=== PATIENT | female | born 1995 | race Two or more races ===

== ENCOUNTER 2022-04-15 02:12 | Emergency (ER) | payer SELFPAY ==
[2022-04-15] VITALS (24 sets, daily range): BP systolic 110–172; BP diastolic 59–110; PULSE 69–74; RESP 16–18; TEMP 36.4; O2SAT 95–100
[2022-04-15] MEDS: METOCLOPRAMIDE HCL INJ 10 MG/2 ML VIAL IM (03:10)
[2022-04-15] MEDS: LACTATED RINGERS 1,000 ML 999 ML IV CONT (04:20)
[2022-04-15] MEDS: ONDANSETRON INJ 4 MG/2 ML VIAL IV PUSH (04:20)
[2022-04-15 04:38] LABS: Basophils Absolute Auto 0.1 K/mm3 (0.0-0.1); Basophils Percent Auto 0.3 % (0.2-1.2); Eosinophils Percent Auto 0.1 % (0-4.4); Hematocrit 43.1 % (37.0-47.0); Immature Granulocyte Absolute 0.04 K/mm3 (0.00-0.031); Immature Granulocyte Percent A 0.2 % (0-0.5); Lymphocytes Absolute Auto 0.97 K/mm3 (0.9-3.2); Mean Corpuscular HGB Conc 32.5 g/dl (32-36); Mean Corpuscular Hemoglobin 29.7 pg (26-34); Mean Corpuscular Volume 91.5 fl (80-100); Mean Platelet Volume 9.1 fl (7.4-10.4); Monocytes Absolute Auto 0.4 K/mm3 (0.1-0.6); Monocytes Percent Auto 2.5 % (2.6-8.5); Neutrophils Absolute Auto 14.7 K/mm3 (1.3-6.7); Neutrophils Percent Auto 90.9 % (45.5-73.1); Platelet Count Result 432 k/mm3 (150-375); Red Blood Count 4.71 M/mm3 (4.2-5.4); White Blood Count 16.2 K/mm3 (4.5-10.0)
[2022-04-15 04:50] LABS: Alanine Aminotransferase 23 U/L (6-35); Albumin Level 5.2 g/dL (3.5-5.1); Alkaline Phosphatase 75 U/L (38-126); Anion Gap 12 mmol/L (8-16); Aspartate Amino Transferase 32 U/L (14-36); Blood Urea Nitrogen 11 mg/dL (7-17); Calcium 9.7 mg/dL (8.4-10.2); Carbon Dioxide 26 mmol/L (22-30); Chloride 104 mmol/L (98-107); Estimated CRCL calculation 150 ml/min; Estimated Glomerular Filt Rate > 60; Glucose 134 mg/dL (65-110); Lipase 25 U/L (23-300); Potassium 3.6 mmol/L (3.4-5.0); Sodium 142 mmol/L (137-145)
[2022-04-15] MEDS: diphenhydrAMINE HCl INJ 50 MG/ML VIAL 25 MG IV PUSH (06:15)
[2022-04-15] MEDS: HALOPERIDOL LACTATE 5 MG/ML VIAL 2.5 MG IV PUSH (06:15)
--- NOTE | 2022-04-15 07:20 | PC.NURSE ---
Patient report received from TIMO Woodson. All questions answered and care of patient assumed.
--- NOTE | 2022-04-15 07:30 | PC.NURSE ---
Patient resting quietly in stretcher with call light within reach. VSS at this time. Patient reports that nausea and vomiting have resolved.
--- NOTE | 2022-04-15 08:33 | ED.NAVMDI ---
HPI - Nausea/Vomiting/Diarrhea General Chief complaint: Nausea/Vomiting/Diarrhea Stated complaint: uncontrollable nausea Time Seen by Provider: 04/15/22 02:49 History of Present Illness HPI Narrative: 27-year-old female presents here with nausea, vomiting, diarrhea, started several hours ago, no fevers or chills, no abdominal pain, unsure if she ate something bad. Denies any recent marijuana use (last use 3 weeks ago.) Related Data Allergies Allergy/AdvReac Type Severity Reaction Status Date / Time No Known Allergies Allergy Verified 04/15/22 03:10 Review of Systems Review of Systems: CONST: No fever. HEENT: No sore throat C/V: No chest pain RESP: No cough GI: Reports abdominal pain, nausea, vomiting[, diarrhea] : No dysuria. M/S: No joint pain. SKIN: No rash. NEURO: [No headache or focal numbness or weakness] PSYCH: [No depression] [facility] Past Medical History Medical History (Updated 04/15/22 @ 08:34 by Catherine Neves MD) No active medical problems Social History Social History (Updated 04/15/22 @ 08:34 by Catherine Neves MD) Substance use: current Substance use type: marijuana Exam Narrative: EXAMINATION OF ORGAN SYSTEMS/BODY AREAS: Constitutional: Vital signs per nursing GENERAL: Actively retching HEAD: Normal with no signs of head trauma. EYES: EOMI, conjunctiva normal ENT: Hearing grossly intact LUNGS: Nonlabored breathing. HEART: Regular rate and rhythm ABD: [Soft], [nontender to palpation] EXT: Normal range of motion SKIN: [No rashes or lesions.] NEURO: [Alert and oriented x 3. No gross focal sensory or strength deficits.] PSYCH: Normal affect Course Course Emergency Course: 27-year-old female presenting with nausea, vomiting, diarrhea, vital stable, exam shows soft nontender abdomen, I doubt any acute intra-abdominal etiology without severe pain, suspect possible gastroenteritis. She is given several rounds of antiemetics, and responded well to Haldol, now resting comfortably, no longer having any more episodes of emesis. Labs notable for mildly elevated white count likely secondary to diarrhea, she is stable for discharge home. Return for any further issues. Vital Signs Vital signs: Vital Signs Temperature 97.5 F L 04/15/22 02:23 Pulse Rate 69 04/15/22 02:23 Respiratory Rate 16 04/15/22 02:23 Blood Pressure 147/90 H 04/15/22 02:23 Pulse Oximetry 100 04/15/22 02:23 Temperature 97.5 F L 04/15/22 02:23 Pulse Rate 69 04/15/22 02:23 Respiratory Rate 16 04/15/22 02:23 Blood Pressure 133/84 04/15/22 07:30 Pulse Oximetry 100 04/15/22 07:45 MDM - Nausea/Vomiting/Diarrhea Lab Data Result diagrams: 04/15/22 04:23 04/15/22 04:23 Labs: Lab Results 04/15/22 04/15/22 Range/Units 04:23 04:23 WBC 16.2 H (4.5-10.0) K/mm3 RBC 4.71 (4.2-5.4) M/mm3 Hgb 14.0 (12.0-15.0) g/dL Hct 43.1 (37.0-47.0) % MCV 91.5 (80-100) fl MCH 29.7 (26-34) pg MCHC 32.5 (32-36) g/dl RDW 13.0 (11.5-14.5) % Plt Count 432 H (150-375) k/mm3 MPV 9.1 (7.4-10.4) fl Immature Gran % (Auto) 0.2 (0-0.5) % Neut % (Auto) 90.9 H (45.5-73.1) % Lymph % (Auto) 6.0 L (18.3-44.2) % [place] % (Auto) 2.5 L (2.6-8.5) % Eos % (Auto) 0.1 (0-4.4) % Baso % (Auto) 0.3 (0.2-1.2) % Lymph # (Auto) 0.97 (0.9-3.2) K/mm3 [place] # (Auto) 0.4 (0.1-0.6) K/mm3 Eos # (Auto) 0.0 (0-0.3) K/mm3 Baso # (Auto) 0.1 (0.0-0.1) K/mm3 Abs Immat Gran (auto) 0.04 H (0.00-0.031) K/mm3 Absolute Neuts (auto) 14.7 H (1.3-6.7) K/mm3 Absolute Nucleated RBC 0.0 (0.0-0.012) K/mm3 Nucleated RBC % 0.0 (0.0-0.2) % Sodium 142 (137-145) mmol/L Potassium 3.6 (3.4-5.0) mmol/L Chloride 104 (98-107) mmol/L Carbon Dioxide 26 (22-30) mmol/L Anion Gap 12 (8-16) mmol/L BUN 11 (7-17) mg/dL Creatinine 0.60 L (0.7-1.0) mg/dL Estim Creat Clear Calc 150 ml/min Estimated GFR > 60 (59 - ) Gluc
== END 2022-04-15 08:53 | disposition home or self-care (01) ==
PROVIDERS: Emergency Provider Emergency Medicine
DX: K52.9 Noninfective gastroenteritis and colitis, unspecified (principal)
CPT/HCPCS: 36415; 80053; 83690; 85025; 96361; 96372; 96374; 96375; 99284; J1200; J1630; J2405; J2765; J7120